=== PATIENT | female | born 1975 | race American Indian/Alaskan Native ===

== ENCOUNTER 2017-07-26 18:47 | Emergency (ER) | payer SELFPAY ==
[2017-07-26 19:34] LABS: Hematocrit 38.5 % (30.3-42.9); Hemoglobin 12.1 gm/dl (10.1-14.3); Mean Corpuscular HGB Conc 31 % (30-34); Mean Corpuscular Volume 81 fl (79-97); Platelet Count 271 K/mm3 (140-440); Red Blood Count 4.75 M/mm3 (3.65-5.03); Red Cell Distribution Width 15.3 % (13.2-15.2)
[2017-07-26 19:44] LABS: Mean Corpuscular Hemoglobin 25 pg (28-32)
[2017-07-26 20:06] LABS: BUN/Creatinine Ratio 34; Blood Urea Nitrogen 17 mg/dL (7-17); Calcium 9.2 mg/dL (8.4-10.2); Hemolysis Index 9
--- NOTE | 2017-07-26 22:08 | Emergency Department Report ---
ED General Adult HPI - General Chief complaint: Extremity Injury, Lower Stated complaint: FEET SWOLLEN Time Seen by Provider: 07/26/17 22:08 Source: patient, RN notes reviewed Mode of arrival: Ambulatory Limitations: No Limitations - History of Present Illness Initial comments: This is a 41-year-old female who is previously unknown to this provider, she does not currently have a primary care doctor, and she reports that she is not . She will further reports a past medical history of hypertension. The patient presents to the ER with a complaint of nontraumatic left dorsal foot pain and swelling for the past month. The pain is sharp, increases with palpation, range of motion, walking, standing for prolonged period of time. It decreases with rest. The swelling is in the left superior aspect of the foot, not her anterior tibial region. There is no chest pain or shortness of breath. There is no abdominal pain there are no urinary symptoms. Patient reports no DVT or pulmonary embolus risk factors. -: Gradual, week(s) Location: left, lower extremity Radiation: non-radiation Quality: aching Improves with: rest Worsens with: movement Associated Symptoms: denies: confusion, chest pain, cough, diaphoresis, fever/ chills, headaches, loss of appetite, malaise, nausea/vomiting, rash, seizure, shortness of breath, syncope, weakness - Related Data Allergies Allergy/AdvReac Type Severity Reaction Status Date / Time latex Allergy Unknown Verified 07/26/17 18:54 ED Review of Systems ROS: Stated complaint: FEET SWOLLEN Other details as noted in HPI Comment: All other systems reviewed and negative ED Past Medical Hx - Past Medical History Hx Hypertension: Yes - Social History Smoking Status: Never Smoker Substance Use Type: Alcohol ED Physical Exam - General Limitations: No Limitations General appearance: alert, in no apparent distress - Head Head exam: Present: atraumatic, normocephalic - Eye Eye exam: Present: normal appearance, EOMI. Absent: nystagmus - ENT ENT exam: Present: normal exam, normal orophraynx, mucous membranes moist, normal external ear exam - Neck Neck exam: Present: normal inspection, full ROM - Respiratory Respiratory exam: Present: normal lung sounds bilaterally. Absent: respiratory distress - Cardiovascular Cardiovascular Exam: Present: regular rate, normal rhythm, normal heart sounds. Absent: systolic murmur, diastolic murmur, rubs, gallop - GI/Abdominal GI/Abdominal exam: Present: soft, normal bowel sounds. Absent: distended, tenderness, guarding, rebound, rigid, pulsatile mass - Extremities Exam Extremities exam: Present: normal inspection, full ROM, normal capillary refill , other (there is mild tenderness in the dorsal aspect of the left foot. There is 1+ edema on the foot and anterior tibial region. There is no palpable cord, there is a negative Homans sign, the compartments are soft, 2+ pulses noted in the bilateral upper and lower extremities, and there is no pain with passive range of motion of the great toe. The patient walks with a steady gait, and is able to dorsi and plantar flex against gravity and weight.). Absent: calf tenderness - Back Exam Back exam: Present: normal inspection, full ROM. Absent: paraspinal tenderness , vertebral tenderness - Neurological Exam Neurological exam: Present: alert, oriented X3, CN II-XII intact, normal gait, other (Extraocular movements intact. Tongue midline. No facial droop. Facial sensation intact to light touch in the V1, V2, V3 distribution bilaterally. 5 and 5 strength in 4 extremities.. Sensation is intact to light touch in 4 extremities.). Absent: motor sensory deficit - Psychiatric Psychiatric exam: Present: normal affect, normal mood - Skin Skin exam: Present: warm, dry, intact, normal color. Absent: rash ED Course Vital Signs 07/26/17 18:51 Temperature 97.8 F Pulse Rate 98 H Respiratory 18 Rate Blood Pressure 164/104 O2 Sat by Pulse 98 Oximetry ED Medical Decision Making - Lab Data Result diagrams: 07/26/17 18:57 07/26/17 18:57 Vital Signs 07/26/17 18:51 Temperature 97.8 F Pulse Rate 98 H Respiratory 18 Rate Blood Pressure 164/104 O2 Sat by Pulse 98 Oximetry Lab Results 07/26/17 07/26/17 07/26/17 Range/Units 18:57 18:57 22:00 WBC 9.9 (4.5-11.0) K/mm3 RBC 4.75 (3.65-5.03) M/mm3 Hgb 12.1 (10.1-14.3) gm/dl Hct 38.5 (30.3-42.9) % MCV 81 (79-97) fl MCH 25 L (28-32) pg MCHC 31 (30-34) % RDW 15.3 H (13.2-15.2) % Plt Count 271 (140-440) K/mm3 Sodium 137 (137-145) mmol/L Potassium 3.8 (3.6-5.0) mmol/L Chloride 95.6 L (98-107) mmol/L Carbon Dioxide 27 (22-30) mmol/L Anion Gap 18 mmol/L BUN 17 (7-17) mg/dL Creatinine 0.5 L (0.7-1.2) mg/dL Estimated GFR > 60 ml/min BUN/Creatinine Ratio 34 % Glucose 167 H (65-100) mg/dL Calcium 9.2 (8.4-10.2) mg/dL NT-Pro-B Natriuret Pep 16.75 (0-450) pg/mL Urine Color Yellow (Yellow) Urine Turbidity Clear (Clear) Urine pH 5.0 (5.0-7.0) Ur Specific House 1.025 (1.003-1.030) Urine Protein <15 mg/dl (Negative) mg/dL Urine Glucose (UA) Neg (Negative) mg/dL Urine Ketones 20 (Negative) mg/dL Urine Blood Neg (Negative) Urine Nitrite Neg (Negative) Urine Bilirubin Neg (Negative) Urine Urobilinogen < 2.0 (<2.0) mg/dL Ur Leukocyte Esterase Neg (Negative) Urine WBC (Auto) 2.0 (0.0-6.0) /HPF Urine RBC (Auto) 1.0 (0.0-6.0) /HPF U Epithel Cells (Auto) 23.0 H (0-13.0) /HPF Urine Mucus Few /HPF - Medical Decision Making Differential diagnosis, including but not limited to: Peripheral edema, venous insufficiency, diabetic neuropathy, dependent edema Assessment and plan: 41-year-old female with 1 month of left lower extremity anterior tibial edema and dorsal foot pain. Has no DVT or pulmonary embolus risk factors, is low risk by well's criteria, is perc negative. Her physical exam is not consistent with cellulitis or compartment syndrome, and she has no risk factors for DVT. Most likely dependent edema, may have a component of diabetic neuropathy as well. Patient will be discharged at this time with instructions to follow palpation primary care, return precautions are reviewed, she declined pain medication. Critical care attestation.: If time is entered above; I have spent that time in minutes in the direct care of this critically ill patient, excluding procedure time. ED Disposition Clinical Impression: Left foot pain Disposition: DC-01 TO HOME OR SELFCARE Is pt being admited?: No Does the pt Need Aspirin: No Condition: Stable Instructions: Leg Edema (ED) Additional Instructions: Rest, and avoid heavy lifting. Avoid strenuous physical activity. Follow-up with a primary care doctor within the next month. Purchase compression stockings as we discussed. Take acetaminophen, 650 mg every 4-6 hours, alternating with ibuprofen, 600 mg with food alternating, every 6 hours. Please return to the ER right away with new pain, worsened pain, migration of pain, weakness, numbness, confusion, projectile vomiting, change in mental status, inability to tolerate liquid feeds. Referrals: [facility] [Provider Group] - 3-5 Days HARPER OLSEN MD [Staff Physician] - 3-5 Days Forms: Work/School Release Form(ED)
[2017-07-26 22:13] LABS: Bilirubin,Urine NEG (Negative); Blood,Urine NEG (Negative); Color,Urine Yellow (Yellow); Mucus,Urine FEW /HPF; Protein,Urine <15 mg/dL mg/dL (Negative); Urobilinogen,Urine < 2.0 mg/dL (<2.0)
[2017-07-26 22:30] VITALS: BP 157/96
== END 2017-07-26 22:47 | disposition home or self-care (01) ==
LOC: ED 18:47
DX: M79.672 Pain in left foot (principal); I10 Essential (primary) hypertension; Z91.040 Latex allergy status
CPT/HCPCS: 36415; 80048; 81001; 83880; 85027; 99283

== ENCOUNTER 2017-11-24 13:23 | Emergency (ER) | payer SELFPAY ==
--- NOTE | 2017-11-24 19:26 | Emergency Department Report ---
ED Female HPI - General Chief complaint: Urogenital-Female Stated complaint: ABD CRAMPING Time Seen by Provider: 11/24/17 19:18 Source: patient Mode of arrival: Ambulatory Limitations: No Limitations - History of Present Illness Initial comments: 42-year-old -[place] female presents to the emergency room for rash between her legs that is itchy burning and painful. Patient reports that the rash is been present for 1 month. It started after she had oral sex. Patient reports a past medical history hypertension and borderline diabetes. Location: labia, perineum Severity scale (0 -10): 10 Quality: burning, other (itchy) Consistency: constant Improves with: none Are you Now?: No (tubal ligation) Associated Symptoms: denies: vaginal discharge, vaginal bleeding, abdominal pain , nausea/vomiting, fever/chills - Related Data Sexually active: Yes Previous Rx's Medication Instructions Recorded Last Taken Type Fluconazole [Diflucan] 150 mg PO QDAY 2 Days #2 tablet 11/24/17 Unknown Rx Nystatin 1 applic TP BID #30 cream..g. 11/24/17 Unknown Rx Allergies Allergy/AdvReac Type Severity Reaction Status Date / Time latex Allergy Unknown Verified 07/26/17 18:54 ED Review of Systems ROS: Stated complaint: ABD CRAMPING Other details as noted in HPI Skin: rash (groin) ED Past Medical Hx - Past Medical History Hx Hypertension: Yes - Surgical History Additional Surgical History: tubal ligation - Social History Smoking Status: Never Smoker Substance Use Type: Alcohol - Medications Home Medications: Home Medications Medication Instructions Recorded Confirmed Last Taken Type Fluconazole [Diflucan] 150 mg PO QDAY 2 Days #2 tablet 11/24/17 Unknown Rx Nystatin 1 applic TP BID #30 cream..g. 11/24/17 Unknown Rx ED Physical Exam - General Limitations: No Limitations General appearance: alert, in no apparent distress - Head Head exam: Present: atraumatic, normocephalic - GI/Abdominal GI/Abdominal exam: Present: soft - Extremities Exam Extremities exam: Present: normal inspection - Neurological Exam Neurological exam: Present: alert, oriented X3 - Psychiatric Psychiatric exam: Present: normal affect, normal mood - Expanded Skin Exam Expanded Distribution of rash: genitals Description of rash: Present: tenderness, erythematous, swelling, papular, other (demarcated raised border hypopigmented in the groin area) ED Course Vital Signs 11/24/17 11/24/17 14:57 18:43 Temperature 97.7 F 98.3 F Pulse Rate 92 H 84 Respiratory 18 18 Rate Blood Pressure 152/100 Blood Pressure 137/98 [137/98] O2 Sat by Pulse 98 98 Oximetry ED Medical Decision Making - Medical Decision Making Patient's been evaluated for this provider fast track. Patient's rash appears to be a tinea. Discussed the patient I will give her Diflucan 150 mg by mouth for 2 days and nystatin cream to apply to the area twice a day. Discussed the patient she needs to follow-up with her primary care provider to check her diabetes status. She verbalized understanding. Critical care attestation.: If time is entered above; I have spent that time in minutes in the direct care of this critically ill patient, excluding procedure time. ED Disposition Clinical Impression: Tinea of groin Disposition: DC-01 TO HOME OR SELFCARE Is pt being admited?: No Does the pt Need Aspirin: No Condition: Stable Instructions: Natalio Darnell (ED) Additional Instructions: Please take medication as prescribed. Follow up with her primary care provider if symptoms persist or gets worse. Prescriptions: Fluconazole [Diflucan] 150 mg PO QDAY 2 Days #2 tablet Nystatin 1 applic TP BID #30 cream..g. Referrals: PRIMARY CARE, [Primary Care Provider] - 3-5 Days Forms: Work/School Release Form(ED)
[2017-11-24 19:49] VITALS: BP 145/103
== END 2017-11-24 19:49 | disposition home or self-care (01) ==
LOC: ED 13:23
DX: B35.9 Dermatophytosis, unspecified (principal); I10 Essential (primary) hypertension; Z98.51 Tubal ligation status; Z91.040 Latex allergy status
CPT/HCPCS: 99282

== ENCOUNTER 2022-02-07 11:53 | Emergency (ER) | payer SELFPAY ==
[2022-02-07 13:28] VITALS: BP 167/105
--- NOTE | 2022-02-07 13:28 | Event Note ---
ED Screening Note Date of service: 02/07/22 Time: 13:25 ED Screening Note: pt report chest since last night with jaw pain. and intermitted SOB. pmh - HTN and DM2 uncontrolled This initial assessment/diagnostic orders/clinical plan/treatment(s) is/are subject to change based on patients health status, clinical progression and re- assessment by fellow clinical providers in the ED. Further treatment and workup at subsequent clinical providers discretion. Patient/guardian urged not to elope from the ED as their condition may be serious if not clinically assessed and managed. Initial orders include: Active Orders 24 hr Category Date Time Status EKG (12 lead) Stat Cardiology 02/07/22 13:27 Ordered Tech to do EKG .once Care 02/07/22 13:27 Ordered Complete Blood Count Auto Diff Stat Lab 02/07/22 13:27 Ordered Comprehensive Metabolic Panel Stat Lab 02/07/22 13:27 Ordered Pro-Brain Natriuretic Peptide Stat Lab 02/07/22 13:27 Ordered Troponin T Stat Lab 02/07/22 13:27 Ordered XR chest 1V ap Stat X-Ray 02/07/22 13:27 Ordered
[2022-02-07 14:11] LABS: Basophils # (Auto) 0.1 K/mm3 (0.0-0.1); Basophils % (Auto) 0.9 % (0.0-1.8); Eosinophils % (Auto) 0.5 % (0.0-4.3); Hematocrit 40.7 % (30.3-42.9); Hemoglobin 12.7 gm/dl (10.1-14.3); Lymphocytes # (Auto) 2.8 K/mm3 (1.2-5.4); Lymphocytes % (Auto) 34.2 % (13.4-35.0); Mean Corpuscular HGB Conc 31 % (30-34); Mean Corpuscular Volume 82 fl (79-97); Monocytes # (Auto) 0.5 K/mm3 (0.0-0.8); Monocytes % (Auto) 5.9 % (0.0-7.3); Platelet Count 276 K/mm3 (140-440); Red Blood Count 4.97 M/mm3 (3.65-5.03); Red Cell Distribution Width 15.5 % (13.2-15.2)
--- NOTE | 2022-02-07 14:24 | XRay Report ---
CHEST 1 VIEW 02/07/2022 2:04 PM INDICATION / CLINICAL INFORMATION: chest pain. COMPARISON: None available. FINDINGS: SUPPORT DEVICES: None. HEART / MEDIASTINUM: No significant abnormality. LUNGS / PLEURA: No significant pulmonary abnormality. No significant pleural effusion. No pneumothora x. ADDITIONAL FINDINGS: No significant additional findings. IMPRESSION: 1. No acute abnormality of the chest. Signer Name: Cain Abebe MD Signed: 02/07/2022 2:20 PM Workstation Name: [email or web address]
[2022-02-07 14:37] LABS: Alanine Aminotransferase 24 units/L (7-56); Albumin 4.7 g/dL (3.9-5); Blood Urea Nitrogen 12 mg/dL (7-17); Calcium 9.7 mg/dL (8.4-10.2); Hemolysis Index 8
[2022-02-07 14:41] LABS: BUN/Creatinine Ratio 24
--- NOTE | 2022-02-08 10:53 | Electrocardiograph Report ---
[facility] Test Date: 2022-02-07 Test Time: 13:34:45 Pat Name: IRAIS BENJAMIN Department: Room: Gender: F Curatorial Specialist: MAXI CONROY : 1975 Requested By: TIESHA OZUNA Order Number: [id number] Reading MD: Willian Quinn Measurements Intervals [place] Rate: 83 P: 67 FL: 202 QRS: 13 QRSD: 82 T: 14 QT: 392 QTc: 462 Interpretive Statements Sinus rhythm First-degree AV Probable left atrial enlargement No previous ECG available for comparison Electronically Signed On 02-08-2022 10:53:23 EDT by Willian Quinn
== END 2022-02-08 03:20 | disposition left against medical advice (07) ==
LOC: ED 11:53
DX: R07.9 Chest pain, unspecified (principal); Z53.21 Procedure and treatment not carried out due to patient leaving prior to being seen by health care provider
CPT/HCPCS: 36415; 71045; 80053; 83880; 84484; 85025; 93005